=== PATIENT | female | born 1950 | race Caucasian/White ===

== ENCOUNTER 2019-08-20 09:50 | Outpatient (CLI) | payer OTHER, SELFPAY ==
--- NOTE | ~2019-08-20 | MM_ITS ---
EXAMINATION: MM screening [facility] BI w albaro HISTORY: Screening mammogram TECHNIQUE: Craniocaudal and mediolateral oblique 3-D tomosynthesis images were obtained and synthetic 2-D images were generated. CAD analysis was submitted and interpreted. COMPARISON: 05/09/2018, 03/22/2017, 02/23/2016 BREAST PARENCHYMAL COMPOSITION: The breasts are heterogeneously dense, which may obscure small masses . FINDINGS: Scattered benign-appearing calcifications are present. There is no evidence of suspicious m ass, calcification, or architectural distortion to suggest malignancy in either breast. There has bee n no suspicious interval change. IMPRESSION: 1. No mammographic evidence of malignancy. 2. Recommend routine screening mammography in one year. BI-RADS Category 2: Benign finding(s). Reviewed, dictated and finalized at location A.
== END 2019-08-20 09:51 | disposition home or self-care (01) ==
PROVIDERS: PCP Family Medicine; Visit Provider Physician Assistant
DX: Z12.31 Encounter for screening mammogram for malignant neoplasm of breast (principal)
CPT/HCPCS: 77063; 77067

== ENCOUNTER 2019-09-17 13:58 | Outpatient (CLI) | payer OTHER, SELFPAY ==
--- NOTE | ~2019-09-17 | DEXA_ITS ---
Bone Density Report Name: Polina Power Age: 69 Sex: Female Ethnicity: White Date of : 1950 Indication: osteopenia; height loss; hysterectomy; Referring Provider: MARIANNA, LEIGH Study: Bone densitometry was performed. Exam Date: September 17, 2019 Accession number: [id number] Bone Density: Region BMD T-score Z-score Classification AP Spine (L1-L4) 0.927 -1.1 0.8 Osteopenia Femoral Neck (Left) 0.684 -1.5 0.2 Osteopenia Total Hip (Left) 0.772 -1.4 0.0 Osteopenia Total Hip Bilateral Avg 0.793 -1.3 0.2 Osteopenia Femoral Neck (Right) 0.667 -1.6 0.0 Osteopenia Total Hip (Right) 0.813 -1.1 0.3 Osteopenia World Health Organization criteria for BMD impression classify patients as: Normal (T-score at or above -1.0), Osteopenia (T-score between -1.0 and -2.5), or Osteoporosis (T-score at or below -2.5). 10-year Fracture Risk(1): Major Osteoporotic Fracture 9.8% Hip Fracture 1.3% Reported Risk Factors: [place] (), Neck BMD=0.667, BMI=26.6 (1) FRAX(R) Version 3.08. Fracture probability calculated for an untreated patient. Fracture probability may be lower if the patient has received treatment. Previous Exams: Region Exam Age BMD T-score BMD Change BMD Change Date g/cm2 vs Baseline vs Previous AP Spine(L1-L4) 09/17/2019 69 0.927 -1.1 -0.039(-4.1%)* -0.047(-4.8%)* 02/23/2016 65 0.974 -0.7 0.007(0.8%) 0.007(0.8%) 10/09/2013 63 0.966 -0.7 Total Hip(Left) 09/17/2019 69 0.772 -1.4 -0.027(-3.4%) 0.030(4.1%)* 02/23/2016 65 0.742 -1.6 -0.057(-7.2%)* -0.057(-7.2%)* 10/09/2013 63 0.799 -1.2 Total Hip(Right) 09/17/2019 69 0.813 -1.1 0.026(3.4%) 0.026(3.3%) 02/23/2016 65 0.787 -1.3 0.000(0.1%) 0.000(0.1%) 10/09/2013 63 0.787 -1.3 *Denotes significance at 95% confidence level, LSC for AP Spine = 0.022 g/cm2, LSC for Total Hip = 0.027 g/cm2 Clinical Information Provided by Patient: Has used the following medications: Vitamin D Has the following medical conditions: Hysterectomy Patient maximum height was 66 Menopause Age: 54 Does not regularly consume dairy products Onset of menses at age 14 Number of children 0 Impression: The patient has low bone mass, based on the Right Femoral Neck T-score. The patient has an estimated ten-year risk of hip fracture of 1.3% and an estimated ten-year risk of major fracture of 9.8%, based on the WHO FRAX algorithm. The BMD for the AP Spine(L1-
== END 2019-09-17 13:59 | disposition home or self-care (01) ==
PROVIDERS: PCP Family Medicine; Visit Provider Physician Assistant
DX: Z78.0 Asymptomatic menopausal state (principal); M85.88 Other specified disorders of bone density and structure, other site; M85.852 Other specified disorders of bone density and structure, left thigh; M85.851 Other specified disorders of bone density and structure, right thigh
CPT/HCPCS: 77080

== ENCOUNTER 2021-01-26 07:28 | Outpatient (CLI) | payer OTHER, SELFPAY ==
--- NOTE | ~2021-01-26 | MM_ITS ---
EXAMINATION: MM screening [facility] BI w albaro HISTORY: Screening mammogram TECHNIQUE: Craniocaudal and mediolateral oblique 3-D tomosynthesis images were obtained and synthetic 2-D images were generated. CAD analysis was submitted and interpreted. COMPARISON: 08/20/2019, 05/09/2018, 03/22/2017 bilateral screening mammogram examinations BREAST PARENCHYMAL COMPOSITION: The breasts are heterogeneously dense, which may obscure small masses . FINDINGS: Scattered bilateral benign-appearing microcalcifications are again noted. There is no evide nce of suspicious mass, calcification, or architectural distortion to suggest malignancy in either br east. There has been no suspicious interval change. IMPRESSION: 1. No mammographic evidence of malignancy. 2. Recommend routine screening mammography in one year. BI-RADS Category 2: Benign finding(s). Reviewed, dictated and finalized at location A. N PERSON
== END 2021-01-26 07:29 | disposition home or self-care (01) ==
LOC: ANHIMG 07:32
PROVIDERS: PCP Physician Assistant; Visit Provider Nurse Practitioner Obstetrics & Gynecology
DX: Z12.31 Encounter for screening mammogram for malignant neoplasm of breast (principal)
CPT/HCPCS: 77063; 77067

== ENCOUNTER → 2021-12-12 14:16 | Outpatient (CLI) | payer OTHER, SELFPAY ==
--- NOTE | ~2021-12-12 | XR_ITS ---
EXAMINATION: XR hip LT min 3V w AP pelvis DATE: 12/12/2021 14:51 INDICATION: Left posterior hip pain TECHNIQUE: Anteroposterior view of the pelvis and anteroposterior, frog leg and cross-table lateral v iews of the left hip were obtained. COMPARISON: None. FINDINGS: Bone alignment is normal. No fracture or suspected avascular necrosis. Mild osteoarthritis at the dre ateral hip and sacroiliac joints. Sclerotic lesion in the right supra-acetabular pelvis. Surgical cli ps in the left and right hemipelvis. IMPRESSION: 1. Mild bilateral hip and sacroiliac osteoarthritis. No acute osseous abnormality. 2. Nonspecific sclerotic lesion in the right supra-acetabular pelvis, most likely a bone island but d ifferential would include metastatic disease particularly if patient has history of prior malignancy. Correlate with any prior outside imaging or could consider bone scan for further evaluation. Reviewed, dictated and finalized at location B. IMPRESSION: 1. Mild bilateral hip and sacroiliac osteoarthritis. No acute osseous abnormali ty. 2. Nonspecific sclerotic lesion in the right supra-acetabular pelvis, most like ly a bone island but differential would include metastatic disease particularly if patient has history of prior malignancy. Correlate with any prior outside i maging or could consider bone scan for further evaluation.
== END ==
PROVIDERS: PCP Physician Assistant; Visit Provider Physician Assistant
DX: M25.552 Pain in left hip (principal); M16.0 Bilateral primary osteoarthritis of hip; M89.9 Disorder of bone, unspecified
CPT/HCPCS: 73502

== ENCOUNTER 2022-04-06 09:38 | Outpatient (CLI) | payer OTHER, SELFPAY ==
--- NOTE | ~2022-04-06 | MM_ITS ---
EXAMINATION: MM screening [facility] BI w albaro HISTORY: Screening mammogram TECHNIQUE: Craniocaudal and mediolateral oblique 3-D tomosynthesis images were obtained and synthetic 2-D images were generated. CAD analysis was submitted and interpreted. COMPARISON: 01/26/2021, 08/20/2019, 05/09/2018 bilateral screening mammogram examinations BREAST PARENCHYMAL COMPOSITION: The breasts are heterogeneously dense, which may obscure small masses . FINDINGS: Numerous chronic bilateral benign calcifications. There is no evidence of suspicious mass, calcification, or architectural distortion to suggest malignancy in either breast. There has been no suspicious interval change. IMPRESSION: 1. No mammographic evidence of malignancy. 2. Recommend routine screening mammography in one year. BI-RADS Category 2: Benign finding(s). Reviewed, dictated and finalized at location A. [place] ANALYST
== END 2022-04-06 09:39 | disposition home or self-care (01) ==
LOC: ANHIMG 09:42
PROVIDERS: PCP Physician Assistant; Visit Provider Physician Assistant
DX: Z12.31 Encounter for screening mammogram for malignant neoplasm of breast (principal)
CPT/HCPCS: 77063; 77067

== ENCOUNTER → 2022-10-27 15:29 | Outpatient (CLI) | payer OTHER, SELFPAY ==
--- NOTE | ~2022-10-27 | XR_ITS ---
EXAMINATION: XR hip LT 2V w AP pelvis DATE: 10/27/2022 16:10 INDICATION: Abnormal bone lesion on prior left hip radiographs. TECHNIQUE: Anteroposterior view of the pelvis and anteroposterior and frog-leg lateral views of the l eft hip were obtained. COMPARISON: 12/12/2021 FINDINGS: Bone alignment is normal. Mild osteoarthritis at the bilateral hip and sacroiliac joints. No signific ant change in a sclerotic lesion at the right supra-acetabular pelvis. Surgical clips in the left and right pelvis. IMPRESSION: 1. No significant change in a sclerotic lesion at the right supra-acetabular region which favors a be nign etiology such as bone island or enchondroma. 2. Mild bilateral hip and sacroiliac osteoarthritis. Reviewed, dictated and finalized at location A. IMPRESSION: 1. No significant change in a sclerotic lesion at the right supra-acetabular re gion which favors a benign etiology such as bone island or enchondroma. 2. Mild bilateral hip and sacroiliac osteoarthritis.
== END ==
PROVIDERS: PCP Physician Assistant; Visit Provider Physician Assistant
DX: M16.0 Bilateral primary osteoarthritis of hip (principal); M53.3 Sacrococcygeal disorders, not elsewhere classified
CPT/HCPCS: 73502

== ENCOUNTER 2023-04-25 08:55 | Outpatient (CLI) | payer OTHER, SELFPAY ==
--- NOTE | ~2023-04-25 | MM_ITS ---
EXAMINATION: MM screening [facility] BI w albaro HISTORY: Screening TECHNIQUE: Craniocaudal and mediolateral oblique 3-D tomosynthesis images were obtained and synthetic 2-D images were generated. CAD analysis was submitted and interpreted. COMPARISON: Comparison to multiple prior studies sequentially, with oldest reviewed study dated 02/01. BREAST PARENCHYMAL COMPOSITION: Dense: The breasts are heterogeneously dense, which may obscure small masses FINDINGS: Stable coarse benign-appearing bilateral breast calcifications possible new area of archite ctural distortion medial aspect of the left breast on CC view. IMPRESSION: 1. Possible new focal area of architectural distortion medial aspect of the left breast on CC view. 2. Additional mammographic views and possible breast ultrasound are recommended. BI-RADS Category 0: Incomplete: Needs additional imaging evaluation. Reviewed, dictated and finalized at location A. [employer]NCEMENTS IMPRESSION: 1. Possible new focal area of architectural distortion medial aspect of the lef t breast on CC view. 2. Additional mammographic views and possible breast ultrasound are recommended . BI-RADS Category 0: Incomplete: Needs additional imaging evaluation.
--- NOTE | ~2023-04-25 | DEXA_ITS ---
Bone Density Report Name: RANDAL WILLIAM Age: 73 Sex: Female Ethnicity: White Date of : 1950 Indication: osteopenia; height loss; hysterectomy; Referring Provider: MARIANNA, LEIGH Study: Bone densitometry was performed. Exam Date: April 25, 2023 Accession number: [id number] Bone Density: Region BMD T-score Z-score Classification AP Spine(L1-L4) 0.986 -0.6 1.6 Normal Femoral Neck (Left) 0.692 -1.4 0.4 Osteopenia Total Hip (Left) 0.763 -1.5 0.1 Osteopenia Femoral Neck (Right) 0.703 -1.3 0.5 Osteopenia Total Hip (Right) 0.763 -1.5 0.1 Osteopenia Total Hip Mean 0.763 -1.5 0.1 Osteopenia World Health Organization criteria for BMD impression classify patients as: Normal (T-score at or above -1.0), Osteopenia (T-score between -1.0 and -2.5), or Osteoporosis (T-score at or below -2.5). 10-year Fracture Risk(1): Major Osteoporotic Fracture 10% Hip Fracture 1.5% Reported Risk Factors: [place] (), Neck BMD=0.692, BMI=26.1 (1) FRAX(R) Version 3.08. Fracture probability calculated for an untreated patient. Fracture probability may be lower if the patient has received treatment. Previous Exams: Region Exam Age BMD T-score BMD Change BMD Change Date g/cm2 vs Baseline vs Previous AP Spine (L1-L4) 04/25/2023 73 0.986 -0.6 0.020 (2.0%)# 0.059 (6.4%)# 09/17/2019 69 0.927 -1.1 -0.039 (-4.1%) -0.047 (-4.8%) 02/23/2016 65 0.974 -0.7 0.007 (0.8%) 0.007 (0.8%) 10/09/2013 63 0.966 -0.7 Total Hip(Left) 04/25/2023 73 0.763 -1.5 -0.036 (-4.5%) -0.009 (-1.2%) 09/17/2019 69 0.772 -1.4 -0.027 (-3.4%) 0.030 (4.1%)* 02/23/2016 65 0.742 -1.6 -0.057 (-7.2%) -0.057 (-7.2%) 10/09/2013 63 0.799 -1.2 Total Hip(Right) 04/25/2023 73 0.763 -1.5 -0.024 (-3.0%) -0.050 (-6.2%) 09/17/2019 69 0.813 -1.1 0.026 (3.4%) 0.026 (3.3%) 02/23/2016 65 0.787 -1.3 0.000 (0.1%) 0.000 (0.1%) 10/09/2013 63 0.787 -1.3 *Denotes significance at 95% confidence level, LSC for AP Spine = 0.022 g/cm2, LSC for Total Hip = 0.027 g/cm2 # Denotes dissimilar scan types or analysis methods Clinical Information Provided by Patient: Has used the following medications: Vitamin D, Calcium Has the following medical conditions: Hysterectomy Patient maximum height was 66 Menopause Age: 54 No regular weight bearing exercise Drinks caffeinated beverages Onset of menses at age 14 Number of children 0
== END 2023-04-25 08:56 | disposition home or self-care (01) ==
LOC: ANHIMG 09:02
PROVIDERS: PCP Physician Assistant; Visit Provider Physician Assistant
DX: Z12.31 Encounter for screening mammogram for malignant neoplasm of breast (principal); Z78.0 Asymptomatic menopausal state; R92.8 Other abnormal and inconclusive findings on diagnostic imaging of breast; M85.852 Other specified disorders of bone density and structure, left thigh; M85.851 Other specified disorders of bone density and structure, right thigh
CPT/HCPCS: 77063; 77067; 77080

== ENCOUNTER 2023-04-25 10:57 | Emergency (ER) | payer OTHER, SELFPAY ==
[2023-04-25 11:10] VITALS: BP 123/73; PULSE 92; RESP 16; TEMP 36.9; O2SAT 99
--- NOTE | 2023-04-25 11:42 | ED.URI ---
HPI - URI/Sore Throat General Chief Complaint: Upper Respiratory Infection Stated Complaint: not feeling well , cough flu exposure Time Seen by Provider: 04/25/23 11:30 Source: patient and RN notes reviewed Mode of arrival: ambulatory Limitations: no limitations History of Present Illness HPI Narrative: Patient presents today complaining of a 5 day history of body aches, nasal congestion, cough sneezing, watery eyes. She has tried DayQuil and NyQuil with mild relief. She was exposed to influenza at work. Denies shortness of breath or chest pain. She is a nonsmoker. Related Data Home Medications Medication Instructions Recorded Confirmed aspirin 81 mg chewable tablet 81 mg PO DAILY 04/25/23 04/25/23 escitalopram oxalate 10 mg tablet 10 mg PO DAILY 04/25/23 04/25/23 rosuvastatin 5 mg tablet 5 mg PO DAILY 04/25/23 04/25/23 Allergies Allergy/AdvReac Type Severity Reaction Status Date / Time zinc Allergy Intermediate Itching Verified 04/25/23 11:25 Review of Systems Review of Systems: CONSTITUTIONAL: Denies fever, chills, or sweats.+ body aches EYES: Denies visual changes, redness, or discharge.+ watery eyes ENT: Denies rhinorrhea,sore throat, or otalgia.+ congestion, sneezing CARDIOVASCULAR: Denies chest pain, palpitations, or edema. RESPIRATORY: Denies dyspnea.+ cough GASTROINTESTINAL: Denies abdominal pain, nausea, vomiting, or diarrhea. GENITOURINARY: Denies dysuria or hematuria. SKIN: Denies rash, itching, or wounds. MUSCULOSKELETAL: Denies back pain, joint pain, or myalgia. NEUROLOGIC: Denies headache, numbness, tingling, or weakness. PSYCH: Denies depression or anxiety. 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 Please see nursing chart for further information. There is no relevant family history pertinent to the presenting complaint Exam Narrative: GENERAL: Mildly ill-appearing, well-nourished, and in no acute distress. HEAD: Normocephalic, atraumatic. EYES: EOMI. No redness or drainage. Conjunctivae normal. ENT: Mucous membranes pink and moist. Nares congestion. No rhinorrhea. TMs normal bilaterally. Throat normal. Uvula midline. NECK: Normal AROM. Supple. No lymphadenopathy. CHEST: No respiratory distress. Clear to auscultation. HEART: Regular rate and rhythm. No murmur appreciated. EXTREMITIES: Normal range of motion. No edema. SKIN: Warm, dry, no rash. Capillary refill normal. Normal skin turgor. NEURO: No focal deficits. Alert and oriented x3. Gait steady. PSYCH: Normal affect. No signs of depression or anxiety. Course Course Level of Care: Express Care Visit Vital Signs Vital signs: Vital Signs Temperature 98.4 F 04/25/23 11:10 Pulse Rate 92 04/25/23 11:10 Respiratory Rate 16 04/25/23 11:10 Blood Pressure 123/73 04/25/23 11:10 Pulse Oximetry 99 04/25/23 11:10 Oxygen Delivery Room Air 04/25/23 11:10 Temperature 98.4 F 04/25/23 11:10 Pulse Rate 92 04/25/23 11:10 Respiratory Rate 16 04/25/23 11:10 Blood Pressure 123/73 04/25/23 11:10 Pulse Oximetry 99 04/25/23 11:10 Oxygen Delivery Room Air 04/25/23 11:10 Reviewed MDM - URI/Sore Throat MDM Narrative Medical decision making narrative: COVID negative, influenza negative. Symptoms likely viral in etiology. Discussed [id number] medication use and duration of illness. Anticipatory guidance given. Differential Diagnosis Differential diagnosis: Likely upper respiratory infection, sinusitis, viral infection, bronchitis, influenza and other (COVID-19) Lab Data Attestation: I reviewed the patient's lab results. Lab results narrative: COVID negative, influenza negative Critical Care Time Critical Care Time Critical Care Time: No Discharge Pl
== END 2023-04-25 11:58 | disposition home or self-care (01) ==
PROVIDERS: Emergency Provider Nurse Practitioner; PCP Physician Assistant
DX: J06.9 Acute upper respiratory infection, unspecified (principal); Z20.822 Contact with and (suspected) exposure to COVID-19; E78.00 Pure hypercholesterolemia, unspecified; Z79.82 Long term (current) use of aspirin
CPT/HCPCS: 87426; 87804; 99213; G0463

== ENCOUNTER 2023-06-04 10:22 | Outpatient (CLI) | payer OTHER, SELFPAY ==
--- NOTE | ~2023-06-04 | MMUS_ITS ---
EXAMINATION: MM diagnostic [facility] LT w albaro, US breast LT limited HISTORY: Possible new area of architectural distortion in the left breast. TECHNIQUE: Additional 3-D tomosynthesis images of the left breast were performed and synthetic 2-D im ages were generated. CAD analysis was submitted and interpreted. High resolution Limited left breast ultrasound was performed. COMPARISON: Comparison to multiple prior studies sequentially, with oldest reviewed study dated 06/2022. BREAST PARENCHYMAL COMPOSITION: Not dense: There are scattered areas of fibroglandular density. FINDINGS: MAMMOGRAPHIC FINDINGS: There scattered clusters of benign-appearing calcifications. No definitive architectural distortion i dentified. No discrete mass. ULTRASOUND: Limited left breast ultrasound: At 9:00, 5 cm from the nipple there is a small hypoechoic oval shaped mass with internal calcifications, likely corresponding to one of the clusters of benign calcificati ons seen on mammography. This measures 7 x 6 x 3 mm, likely benign. At 9:00, 3 cm from the nipple the re is an oval hypoechoic mass oval hypoechoic mass without internal vascularity, parallel orientation , heterogeneous internal echotexture and calcifications measuring 7 x 5 x 3 mm, benign. At 12:00 near the nipple there is a 4 mm cyst. IMPRESSION: 1. Probable benign left breast masses by ultrasound. 2. Recommend 6 month follow-up diagnostic left mammogram and Limited left breast ultrasound BI-RADS category 3, probably benign findings. Reviewed, dictated and finalized at location A. IMPRESSION: 1. Probable benign left breast masses by ultrasound. 2. Recommend 6 month follow-up diagnostic left mammogram and Limited left breas t ultrasound BI-RADS category 3, probably benign findings.
== END 2023-06-04 10:23 | disposition home or self-care (01) ==
LOC: ANHIMG 10:23
PROVIDERS: PCP Physician Assistant; Visit Provider Physician Assistant
DX: R92.8 Other abnormal and inconclusive findings on diagnostic imaging of breast (principal)
CPT/HCPCS: 76642; 77061; 77065; G0279

== ENCOUNTER 2023-11-22 18:33 | Emergency (ER) | payer OTHER, SELFPAY ==
--- NOTE | 2023-11-22 18:35 | ED.URI ---
HPI - URI/Sore Throat General Chief Complaint: Upper Respiratory Infection Stated Complaint: COVID+ Time Seen by Provider: 11/22/23 18:49 Source: patient, RN notes reviewed and old records reviewed Mode of arrival: ambulatory Limitations: no limitations History of Present Illness HPI Narrative: 73-year-old female presents to the [facility] after testing positive for COVID-19. Has been in contact with her primary care provider. 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 States that she does have medicine at home for COVID-19 that her primary care provider scribed Treatments prior to arrival: cold medicine Related Data Home Medications Medication Instructions Recorded Confirmed aspirin 81 mg chewable tablet 81 mg PO DAILY 04/25/23 11/22/23 escitalopram oxalate 10 mg tablet 10 mg PO DAILY 04/25/23 11/22/23 rosuvastatin 5 mg tablet 5 mg PO DAILY 04/25/23 11/22/23 codeine 10 mg-guaifenesin 100 mg/5 See Rx Instructions .Route .COMPLEX 11/22/23 11/22/23 mL oral liquid Allergies Allergy/AdvReac Type Severity Reaction Status Date / Time zinc Allergy Intermediate Itching Verified 11/22/23 18:35 Review of Systems Review of Systems: All systems reviewed & are unremarkable except as noted in HPI and below Constitutional: Constitutional: Reports no additional constitutional complaints Eyes: Eyes: Reports no additional eye complaints ENT: Reports system reviewed and no additional complaints, except as documented Cardiovascular: Cardiovascular: Reports no additional cardiovascular complaints, Denies chest pain and Denies dyspnea Respiratory: Respiratory: Reports as per HPI, Denies chest congestion, Reports cough and Denies dyspnea Gastrointestinal: Gastrointestinal: Reports no additional gastrointestinal complaints, Denies abdominal pain, Denies nausea and Denies vomiting Musculoskeletal: Musculoskeletal: Reports no additional musculoskeletal complaints Integumentary/Breasts: Skin/Breast: Reports system reviewed and no additional complaints, except as docu Neurologic: Reports system reviewed and no additional complaints, except as documented Psychiatric: Psychiatric: Reports no additional psychiatric complaints Allergic/Immunologic: Allergic/Immunologic: Reports no additional allergic/immunologic complaints PMFSH Past Medical History Medical History High cholesterol Comments At the time of my signature, I reviewed and agree with the nursing past medical, surgical, social, and family history. There is no relevant family history pertinent to the patient complaint. Exam Const: General: cooperative, healthy appearing, comfortable, no acute distress, well developed, alert and well nourished Nutritional Appearance: well nourished Orientation/consciousness: patient oriented x3 Limitations: no limitations HENMT: Head: normal to inspection Ears: hearing grossly normal bilaterally, external ears normal, TM's normal bilaterally, EAC's normal, mastoids normal and no periauricular adenopathy Face/Nose/Sinus: Normal external nose present, Normal nares present, Normal nasal mucous membranes and turbinates present, Nasal discharge present clear bilateral, normal facial exam and face symmetric Face and sinus: normal facial exam and face symmetric Eyes: General: appearance normal, both eyes and all related structures Alignment and Position: alignment normal Periorbital: periorbital findings normal Pupils: Equal, round and reactive pupils present EOM: EOMs intact bilaterally Neck: Neck: normal visual inspection, full ROM, no lymphadenopathy and no meningeal signs Chest: Chest palpation & inspection: normal inspection of the chest Resp: Effort & Inspection: normal respiratory effort and able to speak in complete sentences Auscultation: clear to auscultation bilaterally, no crackles, no rales, no rhonchi and no wheezes Cardio: Rate: regu
[2023-11-22 18:44] VITALS: BP 139/77; PULSE 98; RESP 16; TEMP 37.4; O2SAT 99
[2023-11-22 18:56] LABS: EDCOVIDSCREEN Positive (Negative)
== END 2023-11-22 18:55 | disposition home or self-care (01) ==
PROVIDERS: Emergency Provider Nurse Practitioner; PCP Physician Assistant
DX: U07.1 COVID-19 (principal); E78.00 Pure hypercholesterolemia, unspecified; Z79.82 Long term (current) use of aspirin
CPT/HCPCS: 87426; 99212; G0463

== ENCOUNTER 2023-12-05 13:25 | Outpatient (CLI) | payer OTHER, SELFPAY ==
--- NOTE | ~2023-12-05 | MMUS_ITS ---
EXAMINATION: MM diagnostic [facility] LT w albaro, US breast LT limited HISTORY: Follow-up likely benign left breast masses TECHNIQUE: Additional 3-D tomosynthesis images of the left breast were performed and synthetic 2-D im ages were generated. CAD analysis was submitted and interpreted. High resolution Limited left breast ultrasound was performed. COMPARISON: 06/04/2023 BREAST PARENCHYMAL COMPOSITION: Dense: The breasts are heterogeneously dense, which may obscure small masses FINDINGS: MAMMOGRAPHIC FINDINGS: There are stable clusters of coarse benign-appearing breast calcifications scattered throughout the l eft breast. No discrete mass or architectural distortion is identified. Limited left breast ULTRASOUND: Limited left breast ultrasound: At 9:00, 3 cm from the nipple there is an irregular shaped hypoechoic mass measuring 6 x 4 x 3 mm without internal vascularity. There is posterior shadowing. At 12:00 ashlee r the nipple there are mildly prominent ducts. At 9:00, 5 cm from the nipple there is an oval circums cribed stable hypoechoic 3 mm mass with internal calcifications. IMPRESSION: 1. At 9:00, 3 cm from the left nipple there is an irregular shaped 6 mm mass which has a different ap pearing morphology compared with prior study. There are internal calcifications. 2. Ultrasound-guided left breast biopsy recommended. BI-RADS category 4, suspicious findings. Reviewed, dictated and finalized at location B. IMPRESSION: 1. At 9:00, 3 cm from the left nipple there is an irregular shaped 6 mm mass wh ich has a different appearing morphology compared with prior study. There are i nternal calcifications. 2. Ultrasound-guided left breast biopsy recommended. BI-RADS category 4, suspicious findings.
== END 2023-12-05 13:26 | disposition home or self-care (01) ==
LOC: ANHIMG 13:28
PROVIDERS: PCP Physician Assistant; Visit Provider Physician Assistant
DX: R92.8 Other abnormal and inconclusive findings on diagnostic imaging of breast (principal)
CPT/HCPCS: 76642; 77061; 77065; G0279

== ENCOUNTER 2024-01-14 07:57 | Outpatient (CLI) | payer OTHER, SELFPAY ==
--- NOTE | ~2024-01-14 | MMUS_ITS ---
EXAMINATION: 1. US breast biopsy LT w image 2. MM post biopsy diagnostic LT DATE: 01/14/2024 10:01 INDICATION: 6 mm mass in left breast at 9:00. TECHNIQUE: The procedure including the risks, benefits, and alternatives was discussed with the patie nt. Risks discussed included bleeding and infection. The patient understood the risks and agreed to p roceed. The skin of the left breast was prepped and draped in usual sterile fashion. Anesthetic was administered with 1% lidocaine at the skin and 1% lidocaine with epinephrine in the deeper tissue. A 10-gauge vacuum-assisted core biopsy needle was then used to obtain 4 core biopsy specimens under co ntinuous sonographic guidance. A Mammotome HydroMARK open coil marker was placed under sonographic gu idance The entry site was cleaned and dressed. There were no immediate complications. A two-view mammogram was obtained to document marker placement. FINDINGS: Ultrasound images demonstrate the needle in a 6 mm mass in the left breast at 9:00. Breast composition: The breast is heterogeneously dense, which may obscure small masses. Mammogram: Biopsy changes and a marker are noted in the left breast at 9:00. IMPRESSION: 1. Successful ultrasound-guided vacuum-assisted biopsy of a 6 mm nodule in left breast at 9:00 with p ost procedure mammogram for marker placement. Reviewed, dictated and finalized at location A. OR SOFTWARE MANAGER IMPRESSION: 1. Successful ultrasound-guided vacuum-assisted biopsy of a 6 mm nodule in left breast at 9:00 with post procedure mammogram for marker placement.
== END 2024-01-14 07:58 | disposition home or self-care (01) ==
PROVIDERS: PCP Physician Assistant; Visit Provider Surgery
DX: N63.25 Unspecified lump in the left breast, overlapping quadrants (principal)
CPT/HCPCS: 19083; 77065; 88305; A4648

== ENCOUNTER 2025-01-19 14:28 | Outpatient (CLI) | payer OTHER, SELFPAY ==
--- NOTE | ~2025-01-19 | MM_ITS ---
EXAMINATION: MM screening ghada BI w albaro HISTORY: Screening TECHNIQUE: Craniocaudal and mediolateral oblique 3-D tomosynthesis images were obtained and synthetic 2-D images were generated. CAD analysis was submitted and interpreted. COMPARISON: Comparison to multiple prior studies sequentially, with oldest reviewed study dated 05/09/2018. BREAST PARENCHYMAL COMPOSITION: Dense: The breasts are heterogeneously dense, which may obscure small masses. FINDINGS: There is no evidence of suspicious mass, calcification, or architectural distortion to suggest malignancy in either breast. Scattered benign-appearing calcifications are present. IMPRESSION: 1. No mammographic evidence of malignancy. 2. Recommend routine screening mammography in one year. BI-RADS Category 2: Benign finding(s). Reviewed, dictated and finalized at location B. NG INSPECTOR
== END 2025-01-19 14:29 | disposition home or self-care (01) ==
LOC: CHSIMG 14:29
PROVIDERS: PCP Physician Assistant; Visit Provider Surgery
DX: Z12.31 Encounter for screening mammogram for malignant neoplasm of breast (principal)
CPT/HCPCS: 77063; 77067